=== PATIENT | female | born 1940 | race Two or more races ===

== ENCOUNTER 2017-08-14 16:25 | Emergency (ER) | payer MEDICARE, MEDICAID ==
[~2017-08-14] VITALS: Ht 154.9 cm; Wt 68.0 kg
[2017-08-14] MEDS ORDERED: GUAIFENESIN/D-METHORPHAN HB 5 ML UDC PO ONE (19:30)
[2017-08-14] MEDS ORDERED: AMOX/CLAVULANATE 875 MG TABLET PO ONE (19:30)
[2017-08-14] MEDS ORDERED: AMOX/CLAVULANATE 875 MG TABLET ONE (19:35)
[2017-08-14] MEDS ORDERED: GUAIFENESIN/D-METHORPHAN HB 5 ML UDC ONE (19:36)
--- NOTE | 2017-08-14 20:59 | NUR ---
Patient discharged to home in stable condition. Written and verbal after care instructions given. Patient verbalizes understanding of instruction.
[2017-08-14 21:00] VITALS: BP 132/80
== END 2017-08-14 21:01 | disposition home or self-care (01) ==
LOC: ER 16:26
DX: J06.9 Acute upper respiratory infection, unspecified (principal); E11.9 Type 2 diabetes mellitus without complications; I10 Essential (primary) hypertension
CPT/HCPCS: 71046; A4606; Z7610